=== PATIENT | male | born 1960 | race Caucasian/White ===

== ENCOUNTER 2018-09-01 14:06 | Emergency (ER) | payer BC, OTHER ==
[2018-09-01] MEDS ORDERED: Lidocaine 2% 20 ML MDV INFILT ONE (14:07)
--- NOTE | 2018-09-01 14:41 | EDM.PDOC ---
ED HPI GENERAL MEDICAL PROBLEM - General Chief Complaint: Upper Extremity Injury/Pain Stated Complaint: LACERATION TO HAND Time Seen by Provider: 09/01/18 14:37 Source of Information: Reports: Patient History Limitations: Reports: No Limitations - History of Present Illness INITIAL COMMENTS - FREE TEXT/NARRATIVE: Presents with left index finger laceration after it came into contact with a spinning table saw blade. Last Tdap 3 yrs ago. Onset: Today Duration: Hour(s): (1) Location: Reports: Upper Extremity, Left Past Medical History Psychiatric History: Reports: Anxiety Review of Systems - Review of Systems Review Of Systems: ROS reveals no pertinent complaints other than HPI. ED EXAM, GENERAL - Physical Exam Exam: See Below Exam Limited By: No Limitations General Appearance: Alert, WD/WN, No Apparent Distress Ears: Normal External Exam Nose: Normal Inspection Throat/Mouth: No Airway Compromise Head: Atraumatic, Normocephalic Respiratory/Chest: No Respiratory Distress Peripheral Pulses: 2+: Radial (L) Extremities: Other (1.5 cm flap laceration to tip of left index finger crossing the nail bed) Neurological: Alert, Oriented Skin Exam: Other (as above) ED TRAUMA EXTREMITY PROCEDURES - Laceration/Wound Repair Left Digit - 2nd (Index) Lac/Wound Length In cm: 1.5 Appearance: Subcutaneous, Clean Distal NVT: Neuro & Vascular Intact, No Tendon Injury Anesthetic Type: Local Local Anesthesia - Lidocaine (Xylocaine): 2% Plain Local Anesthetic Volume: 2cc Skin Prep: Chlorhexidine (Hibiciens) Exploration/Debridement/Repair: Minimal Debridement (removal of distal fingernail fragment) Closed With: Sutures Suture Size: 4-0 # of Sutures: 6 Sterile Dressing Applied: Nurse Tetanus Status Addressed: Yes Complications: No Progress/Comments: Surgicel applied to nailbed due to persistent oozing of blood Course - Orders/Labs/Meds Orders: Active Orders 24 hr Category Date Time Status Fingers Second Digit Lt F1 [CR] Stat Exams 09/01/18 14:36 Taken Meds: Medications Discontinued Medications Generic Name Dose Route Start Last Admin Trade Name Freq PRN Reason Stop Dose Admin Bacitracin 1 dose 09/01/18 16:36 Bacitracin Oint 1 Gm TOP 09/01/18 16:37 ONETIME ONE Departure - Departure Time of Disposition: 16:45 Disposition: Home, Self-Care 01 Condition: Good Clinical Impression: Finger laceration Qualifiers: Encounter type: initial encounter Finger: index finger Damage to nail status: with damage Foreign body presence: without foreign body Laterality: left Qualified Code(s): S61.311A - Laceration without foreign body of left index finger with damage to nail, initial encounter - Discharge Information *PRESCRIPTION DRUG MONITORING PROGRAM REVIEWED*: No *COPY OF PRESCRIPTION DRUG MONITORING REPORT IN PATIENT BETH: Not Applicable Instructions: Laceration Care, Adult, [id number], Stitches, Robbie, or Adhesive Wound Closure, [id number] Referrals: Kane Moss MD [Primary Care Provider] - Forms: ED Department Discharge Additional Instructions: Follow up in 7-10 days for suture removal, sooner with symptoms or signs of infection. - My Orders Last 24 Hours: My Active Orders 09/01/18 14:36 Fingers Second Digit Lt F1 [CR] Stat - Assessment/Plan Last 24 Hours: My Active Orders 09/01/18 14:36 Fingers Second Digit Lt F1 [CR] Stat
[2018-09-01] MEDS: Bacitracin Oint 1 GM U/D Packet TOP ONE ×2 (16:36→16:45)
== END 2018-09-01 17:00 | disposition home or self-care (01) ==
LOC: FB.ED 14:06
DX: S61.311A Laceration without foreign body of left index finger with damage to nail, initial encounter (principal); W31.2XXA Contact with powered woodworking and forming machines, initial encounter
CPT/HCPCS: 11760; 73140; 99283; J2001; 12011